=== PATIENT | male | born 1995 | race Caucasian/White ===

== ENCOUNTER 2024-10-22 14:35 | Emergency (ER) | payer SELFPAY ==
[~2024-10-22] VITALS: Ht 172.7 cm; Wt 80.0 kg
[2024-10-22 14:45] VITALS: BP 145/84; PULSE 90; RESP 16; TEMP 98.7; O2SAT 100
[2024-10-22] MEDS: ACETAMINOPHEN 325MG TABLET PO NR (16:35)
[2024-10-22] MEDS: IBUPROFEN 400MG TABLET PO NR (16:35)
[2024-10-22] MEDS ORDERED: CYCL10TA21 MT (20:44)
[2024-10-22] MEDS ORDERED: NAPR-681 MT (20:44)
== END 2024-10-22 21:17 | disposition home or self-care (01) ==
LOC: ER 14:35
DX: M79.18 Myalgia, other site (principal); V13.4XXA Pedal cycle driver injured in collision with car, pick-up truck or van in traffic accident, initial encounter; Y93.55 Activity, bike riding; Y92.89 Other specified places as the place of occurrence of the external cause; Y99.8 Other external cause status; Z79.1 Long term (current) use of non-steroidal anti-inflammatories (NSAID)
CPT/HCPCS: 71101; 73590; 99284